=== PATIENT | female | born 1980 | race Caucasian/White ===

== ENCOUNTER 2018-08-08 05:32 | Day surgery (SDC) | payer OTHER ==
[2018-07-31 11:30] LABS: HEMATOCRIT 36.7 % (36.0-47.0); HEMOGLOBIN 12.5 g/dL (12.0-15.5); MEAN CORPUSCULAR HEMOGLOBIN 32.5 pg (27.0-33.4); MEAN CORPUSCULAR HGB CONC 33.9 g/dL (32.0-36.0); MEAN CORPUSCULAR VOLUME 96 fl (80-97); PLATELET COUNT 340 10^3/uL (150-450); RED BLOOD COUNT 3.84 10^6/uL (3.72-5.28); RED CELL DISTRIBUTION WIDTH 12.9 % (11.5-14.0); WHITE BLOOD COUNT 5.9 10^3/uL (4.0-10.5)
[2018-07-31 11:52] LABS: ANION GAP 7 (5-19); BLOOD UREA NITROGEN 14 mg/dL (7-20); CALCIUM 9.9 mg/dL (8.4-10.2); CARBON DIOXIDE 29 mmol/L (22-30); CHLORIDE 103 mmol/L (98-107); GLUCOSE 61 mg/dL (75-110); POTASSIUM 5.1 mmol/L (3.6-5.0)
[~2018-08-08 05:32] MED LIST: CEFAZOLIN 1 GM/D5W RTU 1 GM/50 ML RTUPB IV ONE; CEFAZOLIN 1 GM/D5W RTU 1 GM/50 ML RTUPB IV PRN; LACTATED RINGERS 1000 ML IV PRN; LIDOCAINE 0.5% INJ-PF (5 MG/ML) 50 ML SDV SUBCUT PRN
[2018-08-08] MEDS ORDERED: MIDAZOLAM 2 MG/2 ML INJ ONE (06:34)
[2018-08-08] MEDS ORDERED: ONDANSETRON HCL INJ/PF 4 MG/2 ML SDV ONE (06:34)
[2018-08-08] MEDS ORDERED: FENTANYL CITRATE INJ/PF 100 MCG/2 ML AMPUL ONE (06:34)
[2018-08-08] MEDS ORDERED: DEXAMETHASONE SOD PHOSPHATE INJ 4 MG/1 ML VIAL ONE (06:34)
[2018-08-08] MEDS ORDERED: PROPOFOL INJ 200 MG/20 ML VIAL IV ONE (06:35)
[2018-08-08] MEDS ORDERED: ACETAMINOPHEN 1,000 MG/100 ML RTUPB IV ONE (06:35)
[2018-08-08] MEDS ORDERED: SUGAMMADEX SODIUM 200 MG/2 ML SDV IV ONE (06:35)
[2018-08-08] MEDS ORDERED: BUPIVACAINE HCL 0.25% /EPINEPHRINE INJ/PF 30 ML SDV ONE (07:46)
[2018-08-08] MEDS ORDERED: FENTANYL CITRATE INJ/PF 100 MCG/2 ML AMPUL IV PRN ×3 (08:02)
[2018-08-08] MEDS ORDERED: MEPERIDINE HCL/PF INJ 25 MG/1 ML DISP.SYRIN IV PRN (08:02)
[2018-08-08] MEDS ORDERED: PROMETHAZINE HCL INJ 25 MG/1 ML VIAL IV PRN ×2 (08:02)
[2018-08-08] MEDS ORDERED: DIPHENHYDRAMINE HCL 50 MG/ML VIAL IV PRN (08:02)
[2018-08-08] MEDS ORDERED: MORPHINE SULFATE 10 MG/ML INJ IV PRN (08:02)
[2018-08-08] MEDS ORDERED: ONDANSETRON HCL INJ/PF 4 MG/2 ML SDV IV PRN (08:02)
--- NOTE | 2018-08-08 08:34 | Operative Report ---
Nonrecallable Operative Report DATE OF SURGERY: 08/08/18 PREOPERATIVE DIAGNOSIS: rt breast mass and rt axiillary adenopathy POSTOPERATIVE DIAGNOSIS: rt breast mass and rt axillary adenopathy OPERATION: rt breast biopsy and axillary node biopsy SURGEON: ANATOLIY LUA ANESTHESIA: GA TISSUE REMOVED OR ALTERED: rt breast mass and rt axillary node COMPLICATIONS: none INTRAOPERATIVE FINDINGS: see dictation PROCEDURE: see dictation
--- NOTE | 2018-08-08 08:40 | Discharge Summary ---
Discharge Summary (SDC) - Discharge Final Diagnosis: rt breast mass and axillary adenopathy Date of Surgery: 08/08/18 Discharge Date: 08/08/18 Condition: Good Treatment or Instructions: keep wound dry for 24hrs then ok to remove overlying bandaid and leave steristrips in place Referrals: JOHAN MARQUES PA-C [Primary Care Provider] - Discharge Diet: As Tolerated Discharge Activity: Activity As Tolerated Report the Following to Your Physician Immediately: Nausea, Vomiting, Increase in Pain, Fever over 101 Degrees, Unusual Bleeding
[2018-08-08] MEDS ORDERED: TRAMADOL HCL 50 MG TABLET ONE (09:18)
[2018-08-08] MEDS ORDERED: PHENYLEPHRINE HCL INJ/PF 10 MG/1 ML SDV ONE (10:00)
--- NOTE | 2018-08-08 10:14 | OPERATIVE REPORT E ---
Operative Report NAME: KADE CASTLE : 1980 AGE: 38Y DATE OF SURGERY: 08/08/2018 ROOM: PREOPERATIVE DIAGNOSES: 1. Right breast mass. 2. Right axillary lymphadenopathy. POSTOPERATIVE DIAGNOSES: 1. Right breast mass. 2. Right axillary lymphadenopathy. OPERATIVE PROCEDURES: 1. Right axillary node biopsy. 2. Right breast biopsy. SURGEON: ANATOLIY LUA M.D. DESCRIPTION OF PROCEDURE: The patient was brought to the operating room in awake, alert, and stable condition, placed on the operating room table in supine position, induced under general anesthesia, and intubated. The right breast and axilla were prepped and draped in the usual sterile manner for the procedure. After appropriate timeout, a curvilinear incision was made in the right axilla and dissection was carried down through the subcutaneous tissue with Bovie cautery. The clavipectoral fascia was opened with Bovie cautery and then I was able to easily palpate a level 2 node that was easily identified, grasped with an Allis clamp, and placed on traction. We then dissected the node from the surrounding tissue. One small vessel that was supplying the node was cauterized with Bovie cautery with good hemostasis and the node was excised. It was sent to pathology. The deep tissue was then reapproximated with interrupted 3-0 Vicryl suture and the skin was reapproximated with intracuticular 4-0 Biosyn suture. Attention was then turned to the lateral breast in the upper outer quadrant. There was a small palpable nodule that was easily felt with light palpation. A curvilinear incision was made at the 11 o'clock position in the upper outer quadrant of the right breast. Dissection was carried down through subcutaneous and fatty tissue with Bovie cautery. A palpable nodule was then grasped with an Allis clamp and dissected from the surrounding normal breast tissue and sent also to pathology. Hemostasis was obtained with Bovie cautery. The deep tissue was then reapproximated with interrupted 3-0 Vicryl suture and the skin was reapproximated with intracuticular 4-0 Biosyn suture. Both wounds were then anesthetized with 1% lidocaine with epinephrine. Steri-Strips were applied, which completed the procedure. Estimated blood loss was less than 10 mL. Sponge and needle counts were correct x2. The patient was awakened in the operating room, extubated, transferred to recovery in stable condition. DICTATING PHYSICIAN: ANATOLIY LUA M.D. [id number] PHY#: [id number] ID: [id number] JOB#: [id number] ACCT: [id number] cc:ANATOLIY LUA M.D. >
[2018-08-08 11:19] VITALS: BP 110/70
== END 2018-08-08 10:10 | disposition home or self-care (01) ==
LOC: OROUT 05:32
PROVIDERS: ATTEND Surgery
DX: R59.9 Enlarged lymph nodes, unspecified (principal); N63.10 Unspecified lump in the right breast, unspecified quadrant; E11.9 Type 2 diabetes mellitus without complications; D64.9 Anemia, unspecified; Z79.899 Other long term (current) drug therapy; Z88.2 Allergy status to sulfonamides; Z79.51 Long term (current) use of inhaled steroids
CPT/HCPCS: 19120; 36415 ×2; 84132; 84703; 85027; 80048; 88342 ×2; 88341 ×2; 88305 ×2; 38500; J2250; J3490; J0690; J1100; J3010; J2370; J2405; J2704; J0131; 1610